=== PATIENT | female | born 1995 | race Two or more races ===

== ENCOUNTER 2017-08-15 17:07 | Inpatient (IN) | payer OTHER ==
[~2017-08-15] VITALS: Ht 160 cm; Wt 77.6 kg
[~2017-08-15 17:07] MED LIST: LOVENOX40 MG/0.4; VITAMINAS
[2017-08-15] MEDS ORDERED: PRENATAL TABLE1 EAC1 PO (18:12)
== END 2017-08-19 14:21 | disposition home or self-care (01) | DRG 767 ==
LOC: LDR 17:07 → OB/GYN 17:07 → LDR 08-17 10:35 → OB/GYN 08-17 20:48
PROC: 4A1HXCZ Monitoring of Products of Conception, Cardiac Rate, External Approach (ICD-10-PCS; 2017-08-15)
PROC: 0HQ9XZZ Repair Perineum Skin, External Approach (ICD-10-PCS; principal; 2017-08-17)
PROC: 10E0XZZ Delivery of Products of Conception, External Approach (ICD-10-PCS; 2017-08-17)
PROC: 0UT70ZZ Resection of Bilateral Fallopian Tubes, Open Approach (ICD-10-PCS; 2017-08-17)
PROC: 4A033R1 Measurement of Arterial Saturation, Peripheral, Percutaneous Approach (ICD-10-PCS; 2017-08-17)
DX: O70.0 First degree perineal laceration during delivery (principal); Z37.0 Single live birth; O60.14X0 Preterm labor third trimester with preterm delivery third trimester, not applicable or unspecified; O69.81X0 Labor and delivery complicated by cord around neck, without compression, not applicable or unspecified; Z30.2 Encounter for sterilization; Z64.1 Problems related to multiparity; Z3A.35 35 weeks gestation of pregnancy

== ENCOUNTER 2021-04-02 10:03 | Emergency (ER) | payer OTHER ==
[~2021-04-02] VITALS: Ht 160 cm; Wt 76.7 kg
[~2021-04-02 10:03] MED LIST changes: +PRENATAL TABLE1 EAC1 PO
[2021-04-02] MEDS ORDERED: B-100 COMPLEX100 MG PO (10:22)
[2021-04-02] MEDS ORDERED: ZITHROMAX500 MG PO (12:43)
== END 2021-04-02 12:52 | disposition home or self-care (01) ==
LOC: ER 10:03
DX: R10.12 Left upper quadrant pain (principal)

== ENCOUNTER 2021-12-12 10:15 | Emergency (ER) | payer OTHER ==
[~2021-12-12] VITALS: Ht 162.6 cm; Wt 75.7 kg
[~2021-12-12 10:15] MED LIST changes: +B-100 COMPLEX100 MG PO; +ZITHROMAX500 MG PO
== END 2021-12-12 15:27 | disposition home or self-care (01) ==
LOC: ER 10:15
DX: R20.0 Anesthesia of skin (principal); R42 Dizziness and giddiness; R53.81 Other malaise; Z88.6 Allergy status to analgesic agent; Z88.9 Allergy status to unspecified drugs, medicaments and biological substances; Z20.822 Contact with and (suspected) exposure to COVID-19

== ENCOUNTER 2022-02-23 21:30 | Emergency (ER) | payer OTHER ==
[~2022-02-23] VITALS: Ht 162.6 cm; Wt 65.8 kg
[2022-02-23] MEDS ORDERED: ORPHENADRINE C100 MG PO (23:41)
[2022-02-23] MEDS ORDERED: MEDROLPACK PO (23:41)
== END 2022-02-24 00:07 | disposition home or self-care (01) ==
LOC: ER 21:30
DX: M94.0 Chondrocostal junction syndrome [Tietze] (principal); F41.9 Anxiety disorder, unspecified; Z88.6 Allergy status to analgesic agent; Z88.8 Allergy status to other drugs, medicaments and biological substances

== ENCOUNTER → 2023-07-14 | Emergency (ER) | payer OTHER ==
[~2023-07-14] VITALS: Ht 162.6 cm; Wt 65.8 kg
[~2023-07-14] MED LIST changes: +MEDROLPACK PO; +ORPHENADRINE C100 MG PO
[2023-07-15 00:59] LABS: PH,URINE 5.5 (5.0-8.0); URINE APPEARANCE Clear; URINE BILIRRUBIN Negative (NEGATIVE); URINE BLOOD Negative; URINE COLOR Yellow; URINE GLUCOSE Negative (NEGATIVE); URINE LEUKOCYTE Negative; URINE NITRATE Negative; URINE PROTEIN Negative (NEGATIVE); URINE UROBILINOGEN 0.2 E.U./dl
[2023-07-15 01:00] LABS: HEMATOCRIT 39.2 % (36.0-45.00); HEMOGLOBIN 13.2 g/dL (12.0-15.00); MEAN CELL VOLUME 85.8 fL (80.00-100.00); MEAN CORPUSCULAR HEMOGLOBIN 28.9 pg (27.00-32.0); MEAN CORPUSCULAR HGB CONC 33.7 g/dl (32.0-36.0); PLATELET COUNT 289 K/uL (150-450); RED BLOOD COUNT 4.57 M/uL (4.00-6.00); RED CELL DISTRIBUTION WIDTH 12.9 % (11.5-14.5)
[2023-07-15 01:02] LABS: URINE BACTERIA 138.5 uL (0.0-1933); URINE EPITHELIAL CELLS 7.2 uL (0.0-38.8); URINE WBC 4.7 uL (0.0-23.2)
[2023-07-15 01:10] LABS: URINE RBC 1.7 uL (0.0-20.8)
== END | disposition home or self-care (01) ==
LOC: ER 22:37
PROVIDERS: Emergency Medicine
DX: R53.81 Other malaise (principal); Z88.6 Allergy status to analgesic agent; Z88.8 Allergy status to other drugs, medicaments and biological substances